=== PATIENT | female | born 1970 | race Two or more races ===

== ENCOUNTER 2018-04-07 00:25 | Emergency (ER) | payer BC, OTHER ==
[~2018-04-07] VITALS: Ht 160 cm; Wt 67.1 kg
[2018-04-07 00:50] VITALS: BP_SYST 123
[2018-04-07] MEDS ORDERED: LEVO100T PO (01:02)
[2018-04-07 01:26] VITALS: BP_SYST 118
== END 2018-04-07 01:26 | disposition home or self-care (01) ==
LOC: SED 00:25
DX: S01.21XA Laceration without foreign body of nose, initial encounter (principal); R03.0 Elevated blood-pressure reading, without diagnosis of hypertension; W18.09XA Striking against other object with subsequent fall, initial encounter; Y93.89 Activity, other specified; Y92.89 Other specified places as the place of occurrence of the external cause; Y99.8 Other external cause status
CPT/HCPCS: 70160-TC; 99283